=== PATIENT | male | born 1995 | race Caucasian/White ===

== ENCOUNTER 2017-02-14 13:23 | Emergency (ER) | payer SELFPAY ==
[~2017-02-14] VITALS: Ht 185.4 cm; Wt 87.2 kg
[2017-02-14 14:20] LABS: ADD MIUA? YES; BILIRUBIN NEGATIVE; BLOOD NEGATIVE; COLOR YELLOW ((YELLOW)); GLUCOSE (STRIP) 50; KETONES NEGATIVE; LEUKOCYTES NEGATIVE; NITRITE NEGATIVE; PROTEIN (STRIP) >=500; SPECIFIC GRAVITY 1.019 (1.000-1.030); UROBILINOGEN 0.2 MG/DL (0.2-1.0)
[2017-02-14 14:29] LABS: HEMATOCRIT 48.1 % (38.0-50.0); MCH 28.7 PG (29.0-34.0); MCHC 33.9 G/DL (30.0-36.0); MCV 84.7 FL (86-99); MEAN PLAT.VOLUME 8.9 uM^3 (9.0-12.4); PLATELET COUNT 336 K/uL (156-360); RBC DIS.WIDTH-CV 11.8 % (11.8-14.6); RBC DIS.WIDTH-SD 35.9 % (39-53); RED BLOOD COUNT 5.68 M/uL (4.00-5.50); WHITE BLOOD COUNT 7.9 K/uL (4.1-10.2)
[2017-02-14 14:32] LABS: BACTERIA RARE /HPF; EPITHELIAL CELLS RARE /HPF; HYALINE CASTS 0-5 /LPF; MUCUS 3+ /LPF; RED BLOOD CELLS 20-30 /HPF (0-5); WHITE BLOOD CELLS TNTC /HPF (0-5)
[2017-02-14 14:41] LABS: CHLORIDE 106 mEq/L (99-109); POTASSIUM 4.2 mEq/L (3.7-5.4); SODIUM 139 mEq/L (136-147)
[2017-02-14 14:43] LABS: GLUCOSE 100 mg/dL (70-99)
[2017-02-14 14:44] LABS: ANION GAP 8 MEQ/L (2-14)
[2017-02-14 14:45] LABS: TOTAL BILIRUBIN 0.4 mg/dL (0.0-1.0)
[2017-02-14 14:46] LABS: ALKALINE PHOSPHATASE 40 IU/L (3-129)
[2017-02-14 14:47] LABS: GFR ESTIMATE (CALCULATED) > 59 mL/min/ (58.99-99999)
[2017-02-14 14:48] LABS: UREA NITROGEN (BUN) 16 mg/dL (9-23)
[2017-02-14] MEDS ORDERED: CIPRO500 MG PO (16:45)
[2017-02-14] MEDS ORDERED: PYRIDIUM100 MG PO (16:45)
[2017-02-14 17:06] VITALS: BP 124/75
== END 2017-02-14 17:07 | disposition home or self-care (01) ==
LOC: EME 13:23
PROVIDERS: Physician Assistant
DX: N39.0 Urinary tract infection, site not specified (principal); R19.7 Diarrhea, unspecified; F84.5 Asperger's syndrome
CPT/HCPCS: 74176; 80053; 81003; 85027; 99281; 99284